=== PATIENT | male | born 1940 | race Caucasian/White ===

== ENCOUNTER → 2018-06-30 | Day surgery (SDC) | payer MEDICARE ==
[~2018-06-30] MED LIST: AMLODIPINE BESY10 MG PO; CEFTRIAXONE SOD 1 GM/NS 50 ML 50 ML IV ONE; GENTAMICIN SULFATE 200 MG in SODIUM CHLORIDE 0.9% 100 ML IV ONE; LIDOCAINE HCL 2% LOCAL INJ 5 ML SDV VIAL INJ ONE; LOSARTAN-HCTZ1 EACH PO; METOPROLOL SUCC25 MG PO; PROPOFOL IV EMULSION 10 MG/ML 20 ML VIAL ONE; SEVOFLURANE INHAL SOLN 250 ML PEN BTL ONE; SODIUM CHLORIDE 0.9% 1000ML 1,000 ML IV SCH
--- OUTSIDE RECORDS SUMMARY | 2018-06-30 06:58 | XMS REPORT | Clinical Summary ---
Author Author [facility] Organization [facility] Address Unknown Phone Unavailable Care Team Providers Care Glass Pulverizer Equipment Operator Name Role Phone Yoan Torres MD PCP Allergies No Known Allergies Medications No known medications Active Problems Problem Noted Date Acute pain of left knee 08/18/2016 Encounters Care Team Description Date Type Specialty Jairo Callahan MD Elevated PSA; Benign localized hyperplasia of prostate with urinary retention 06/25/2018 Hospital Radiology Encounter Jairo Callahan MD Elevated PSA (Primary Dx); Benign localized hyperplasia of prostate with urinary retention 06/24/2018 Transcribe Access Orders Jairo Callahan MD Elevated PSA 10/06/2017 Hospital Radiology Encounter Jairo Callahan MD Elevated PSA (Primary Dx) 10/01/2017 Transcribe Access Orders after 06/29/2017 Family History Relation Name Status Comments Father Mother Social History Date Tobacco Use Types Packs/Day Years Used Former Smoker Smokeless Tobacco: Current User Sex Assigned at Date Recorded Not on file Industry Job Start Date Occupation Not on file Not on file Not on file Travel End Travel History Travel Start No recent travel history available. Last Filed Vital Signs Not on file Plan of Treatment Health Maintenance Due Date Last Done Comments SHINGLES VACCINES (1 of 1991 2) PNEUMOCOCCAL 2006 POLYSACCHARIDE VACCINE AGE 65 AND OVER PNEUMOCOCCAL-13 2006 INFLUENZA VACCINE 12/23/2017 Procedures Comments Procedure Name Priority Date/Time Associated Diagnosis US PROSTATE Routine 06/25/2018 Elevated PSA 12:26 PM MACHINE OPERATOR Benign localized hyperplasia of prostate with urinary retention US PROSTATE Routine 10/06/2017 Elevated PSA 10:44 AM CDT after 06/29/2017 Results * US Prostate (06/25/2018 12:26 PM MACHINE OPERATOR) Only the most recent of 2 results within the time period is included. Narrative Performed At EXAMINATION:US PROSTATE [facility] CLINICAL HISTORY: R97.20 Elevated prostate specific antigen (PSA), N40.1 Benign prostatic hyperplasia with lower urinary tract symptoms, r97.2 n40.1 COMPARISON:None. Impression: 1.Prostate measures 5.6 x 3.6 x 5.8 cm for a calculated volume of 45 g. 2.There is enlargement and heterogeneity of the transition... Which is a prosthetic upper superior 3.There is a peripheral zone abnormality near the base and slightly to the right of midline. This is nonspecific on this examination. If the patient can tolerate MRI scan, MRI scan of the prostate would be suggested for better characterization and more sensitive evaluation of the deeper portion of the gland. [id number] Procedure Note Interface, Radiology Results Incoming - 06/25/2018 4:51 PM MACHINE OPERATOR EXAMINATION: US PROSTATE CLINICAL HISTORY: R97.20 Elevated prostate specific antigen (PSA), N40.1 Benign prostatic hyperplasia with lower urinary tract symptoms, r97.2 n40.1 COMPARISON: None. Impression: 1. Prostate measures 5.6 x 3.6 x 5.8 cm for a calculated volume of 45 g. 2. There is enlargement and heterogeneity of the transition... Which is a prosthetic upper superior 3. There is a peripheral zone abnormality near the base and slightly to the right of midline. This is nonspecific on this examination. If the patient can tolerate MRI scan, MRI scan of the prostate would be suggested for better characterization and more sensitive evaluation of the deeper portion of the gland. [id number] Performing Organization Address City/State/Zipcode Phone Number [facility] [address] [place] [address] after 06/29/2017 Insurance Payer Benefit Subscriber ID Type Phone Address Plan / Group [facility] MEDICARE AARP xxxxxxxxx O MEDICARE COMPLETE [place] (Home) [place] [address] Advance Directives Patient has advance care planning documents on file. For more information, pleas e contact: Anselmo Linares [address] [place] [place] [place] [address]
--- NOTE | 2018-06-30 08:10 | NUR ---
SPIRITUAL CARE - Pre-Surgery Assessment: Pt in bed. Pt's at bedside. Pt reported supportive attention from family and friends. Intervention: I provided pastoral presence, hospitality, and sympathetic listening. I acquainted pt with availability of housekeeper child care while hospitalized. Outcome: Pt expressed appreciation for visit. No need for follow up indicated at this time. [facility] Spiritual Care Department O: [phone] Pager: [phone] ([phone] + number calling from)
[2018-06-30 10:55] VITALS: BP 142/78
--- NOTE | 2018-06-30 11:12 | Operative Report ---
DATE OF PROCEDURE: June 30, 2018 PREOPERATIVE DIAGNOSES 1. Benign prostatic hypertrophy. 2. Rule out adenocarcinoma of the prostate. 3. Abnormal prostate-specific antigen, 41.2. POSTOPERATIVE DIAGNOSES 1. Benign prostatic hypertrophy. 2. Rule out adenocarcinoma of the prostate. 3. Abnormal prostate-specific antigen, 41.2. 4. Multiple bladder calculi, about 30. OPERATIONS 1. Transrectal ultrasound of the prostate. 2. Transrectal ultrasound-guided needle biopsies. 3. Cystourethroscopy. 4. Vesicolitholapaxy for all bladder calculi with complete removal of the stones. MODELING MANAGER: Dr. Simmons. ANESTHETIC: General. Mr. Boss is a 78-year-old male who presented with a chief complaint of increasing lower urinary tract obstruction. Rectal exam showed an enlarged, hard, fixed, irregular prostate all over. His PSA was 41.2. This patient has been seen in the office about a year ago and at this time his PSA was around 30 and he was advised about having prostate needle biopsy but he declined. DETAILS: This patient was placed on the table in the lithotomy position, and transrectal ultrasound of the prostate was performed and the prostate measured 5.38 x 3.66 x 4.64 with a total volume of 50.43 mL. The prostate was all over irregular and had multiple hypoechoic lesions all over. Both seminal vesicles were unremarkable. Transrectal ultrasound-guided needle biopsies were obtained from all over the prostate. This patient was then prepped and draped in a sterile manner after satisfactory anesthesia. A #23-Eritrean cystoscope was used and cystourethroscopy was performed and it was noted that the urethra was normal. The prostatic urethra was about 4 cm long, bilobar and occlusive. Cystoscopy was then performed using both right angle and the 4-0 oblique lens and there were about 30 bladder calculi almost filling the bladder. The bladder mucosa was normal. Both urethral orifices were seen and were within normal position, configuration and efflux. The [employer] evacuator was connected to the cystoscope and evacuation of all bladder calculi were done without any difficulty. The bladder was then irrigated and there were no stones. Cystoscopy was done and there were stones left. The bladder was drained. Cystoscope removed. Plans for this patient is to be placed on Levaquin 500 mg once a day for 1 week. Ultracet tablet 1 every 6 to 8 hours p.r.n. and was given 15. He is to return to the office in 1 week when at that time results of the biopsy will be back and will proceed with whatever indicated procedure. Job#: [id number] ZECHARIAH
== END | disposition home or self-care (01) ==
LOC: OR 06:56
PROVIDERS: ATTEND Specialist
DX: C61 Malignant neoplasm of prostate (principal); N21.0 Calculus in bladder; N40.1 Benign prostatic hyperplasia with lower urinary tract symptoms; N13.8 Other obstructive and reflux uropathy; I10 Essential (primary) hypertension
CPT/HCPCS: 52315; 55700; 76872; 88300; 88305; 93005; J0696; J1580; J2001; J2704; J7050

== ENCOUNTER 2018-08-11 07:46 | Observation (INO) | payer MEDICARE ==
[~2018-08-11] VITALS: Ht 170.2 cm; Wt 70.8 kg
[~2018-08-11 07:46] MED LIST changes: -CEFTRIAXONE SOD 1 GM/NS 50 ML 50 ML IV ONE; -GENTAMICIN SULFATE 200 MG in SODIUM CHLORIDE 0.9% 100 ML IV ONE; -LIDOCAINE HCL 2% LOCAL INJ 5 ML SDV VIAL INJ ONE; +LISINOPRIL-HCT1 EACH PO; -PROPOFOL IV EMULSION 10 MG/ML 20 ML VIAL ONE; -SEVOFLURANE INHAL SOLN 250 ML PEN BTL ONE; -SODIUM CHLORIDE 0.9% 1000ML 1,000 ML IV SCH
--- OUTSIDE RECORDS SUMMARY | 2018-08-11 07:48 | XMS REPORT | Clinical Summary ---
Author Author [facility] Organization [facility] Address Unknown Phone Unavailable Care Team Providers Care Exhibit Carpenter Name Role Phone Nadia Dumont MD PCP Allergies No Known Allergies Medications No known medications Active Problems Problem Noted Date Acute pain of left knee 08/18/2016 Encounters Care Team Description Date Type Specialty Jairo Callahan MD 08/05/2018 [facility] Procedural Cardiology Encounter Jairo Callahan MD Prostate cancer (HCC) 07/20/2018 Hospital Radiology Encounter Jairo Callahan MD 07/20/2018 Hospital Radiology Encounter Jairo Callahan MD Prostate cancer (HCC) 07/20/2018 Hospital Radiology Encounter Jairo Callahan MD Prostate cancer (HCC) (Primary Dx) 07/15/2018 Transcribe Access Orders Jairo Callahan MD Elevated PSA; Benign localized hyperplasia of prostate with urinary retention 06/25/2018 Hospital Radiology Encounter Jairo Callahan MD Elevated PSA (Primary Dx); Benign localized hyperplasia of prostate with urinary retention 06/24/2018 Transcribe Access Orders Jairo Callahan MD Elevated PSA 10/06/2017 Hospital Radiology Encounter Jairo Callahan MD Elevated PSA (Primary Dx) 10/01/2017 Transcribe Access Orders after 08/10/2017 Family History Relation Name Status Comments Father [...] Due Date Last Done Comments SHINGLES VACCINES (#1) 1991 65+ PNEUMOCOCCAL VACCINE 2006 (1 of 2 - PCV13) PNEUMOCOCCAL 2006 POLYSACCHARIDE VACCINE AGE 65 AND OVER INFLUENZA VACCINE 12/23/2017 Procedures Comments Procedure Name Priority Date/Time Associated Diagnosis ECG 12-LEAD Routine 08/05/2018 8:06 AM CDT NM BONE SCAN WHOLE BODY Routine 07/20/2018 Prostate cancer (HCC) 12:48 PM FARM MORTGAGE AGENT MRI PELVIS W WO CONTRAST Routine 07/20/2018 Prostate cancer (HCC) 8:56 AM FARM MORTGAGE AGENT ESTIMATED GFR Routine 07/20/2018 7:22 AM FARM MORTGAGE AGENT POC CREATININE Routine 07/20/2018 7:22 AM FARM MORTGAGE AGENT US PROSTATE Routine 06/25/2018 Elevated PSA 12:26 PM FARM MORTGAGE AGENT Benign localized hyperplasia of prostate with urinary retention US PROSTATE Routine 10/06/2017 Elevated PSA 10:44 AM CDT after 08/10/2017 Results * ECG 12 lead (08/05/2018 8:06 AM CDT) Ventricular rate 47 [facility] Atrial rate 47 [facility] AK interval 182 [facility] QRSD interval 90 [facility] QT interval 460 [facility] QTC interval 407 [facility] P axis 1 8 [facility] QRS axis 1 22 [facility] T wave axis -8 [facility] EKG impression Marked sinus [facility] bradycardia-Septal infarct , age undetermined-Abnormal ECG-- Narrative Performed At Performing Organization Address City/State/Zipcode Phone Number [facility] M[facility] [address] [place] [address] * NM Bone Scan Whole Body (07/20/2018 12:48 PM FARM MORTGAGE AGENT) Narrative Performed At PROCEDURE:NM BONE SCAN WHOLE BODY [facility] INDICATION:Prostate cancer. COMPARISON:MRI of the pelvis performed on same day. TECHNIQUE: Approximately three hours after the IV administration of 25 mCi of Tc-99m labeled MDP, routine whole body planar bone scanning was performed in the anterior and posterior projections. 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 IMPRESSION: 1.No scintigraphic evidence of osseous metastatic disease. [facility]-[id number] Procedure Note Interface, Radiology Results Incoming - 07/20/2018 12:58 PM FARM MORTGAGE AGENT PROCEDURE: NM BONE SCAN WHOLE BODY INDICATION: Prostate cancer. COMPARISON: MRI of the pelvis performed on same day. TECHNIQUE: Approximately three hours after the IV administration of 25 mCi of Tc-99m labeled MDP, routine whole body planar bone scanning was performed in the anterior and posterior projections. FINDINGS: No suspicious uptake is seen to suggest the presence of osseous metastatic disease. 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 IMPRESSION: 1. No scintigraphic evidence of osseous metastatic disease. [facility]-[id number] Performing Organization Address City/State/Zipcode Phone Number [facility] [address] [place] [address] * MRI Pelvis W Wo Contrast (07/20/2018 8:56 AM FARM MORTGAGE AGENT) Narrative [facility]formed At [facility] EXAMINATION:MRI PELVIS W WO CONTRAST CLINICAL HISTORY:C61 Malignant neoplasm of prostate, PROSTATE CA COMPARISON:None. TECHNIQUE: Using a pelvic phased array coil, multiplanar, multisequence MRI of the pelvis was performed with a prostate-specific protocol with and without contrast. Diffusion weighted images and dynamic contrast enhanced images were performed. FINDINGS: 1. The image quality is satisfactory. 2. The prostate gland measures 5.0 x 3.4 x 4.5 cm. Estimated prostatic volume is 41 cc calculated by ellipsoid formula. 3. Central gland: There is BPH involving the central gland without a significant lesion identified. 4. Peripheral zone: There is diffuse hemorrhage consistent with recent biopsy. There is relative sparing of hemorrhage throughout the left peripheral zone associated with abnormal T2 signal, diffusion restriction, and abnormal perfusion consistent with malignancy. This essentially involves the entire left hemigland measuring approximately 2.9 x 1.6 cm on transaxial dimensions and spanning 3.6 cm in length. 5. Seminal vesicles: There is some hemorrhagic signal without definite tumor. 6. Extracapsular extension: The large left peripheral zone lesion demonstrates broad capsular contact with some bulging and irregularity at the base and midgland (example, series 10 images 11 and 14). 7: Bladder: Normal. 8. Lymph nodes: No suspicious lymph nodes. 9. Bones: No focal marrow replacing abnormality. IMPRESSION: Large volume disease throughout the left peripheral zone with suspected extra-prostatic extension (PI-RADS 5). No regional lymphadenopathy by size criteria. PI-RADS score: The presence of a significant prostate cancer is: PI-RADS 1: Highly unlikely PI-RADS 2: Unlikely PI-RADS 3: Equivocal PI-RADS 4: Likely PI-RADS 5: Highly likely [id number] Procedure Note Hm Interface, Radiology Results Incoming - 07/20/2018 5:33 PM FARM MORTGAGE AGENT EXAMINATION: MRI PELVIS W WO CONTRAST CLINICAL HISTORY: C61 Malignant neoplasm of prostate, PROSTATE CA COMPARISON: None. TECHNIQUE: Using a pelvic phased array coil, multiplanar, multisequence MRI of the pelvis was performed with a prostate-specific protocol with and without contrast. Diffusion weighted images and dynamic contrast enhanced images were performed. FINDINGS: 1. The image quality is satisfactory. 2. The prostate gland measures 5.0 x 3.4 x 4.5 cm. Estimated prostatic volume is 41 cc calculated by ellipsoid formula. 3. Central gland: There is BPH involving the central gland without a significant lesion identified. 4. Peripheral zone: There is diffuse hemorrhage consistent with recent biopsy. There is relative sparing of hemorrhage throughout the left peripheral zone associated with abnormal T2 signal, diffusion restriction, and abnormal perfusion consistent with malignancy. This essentially involves the entire left hemigland measuring approximately 2.9 x 1.6 cm on transaxial dimensions and spanning 3.6 cm in length. 5. Seminal vesicles: There is some hemorrhagic signal without definite tumor. 6. Extracapsular extension: The large left peripheral zone lesion demonstrates broad capsular contact with some bulging and irregularity at the base and midgland (example, series 10 images 11 and 14). 7: Bladder: Normal. 8. Lymph nodes: No suspicious lymph nodes. 9. Bones: No focal marrow replacing abnormality. IMPRESSION: Large volume disease throughout the left peripheral zone with suspected extra- prostatic extension (PI-RADS 5). No regional lymphadenopathy by size criteria. PI-RADS score: The presence of a significant prostate cancer is: PI-RADS 1: Highly unlikely PI-RADS 2: Unlikely PI-RADS 3: Equivocal PI-RADS 4: Likely PI-RADS 5: Highly likely [facility]-[id number] Performing Organization Address City/[facility]/Zipcode Phone Number [facility] [address] [place] [address] * Estimated GFR (07/20/2018 7:22 AM FARM MORTGAGE AGENT) Estimated GFR >=90 mL/min/1.73 m2 [facility] Comment: [facility] CatergoryUnitsInte rpretation G1 >=90 Normal or high G2 60-89Mildly decreased R8e83-58 Mildly to moderately decreased T9e81-84 Moderately to severely decreased G4 15-29Severely decreased G5 <15Kidney failure The eGFR was calculated using the Chronic Kidney Disease Epidemiology Collaboration (CKD-EPI) equation. Interpretation is based on recommendations of the National Kidney Foundation-Kidney Disease Outcomes Quality Initiative (NKF-KDOQI) published in 2014. Specimen Blood Performing Organization Address [place]/[facility] [place] [address] PATHOLOGY AND GENOMIC MEDICINE [address] * POC creatinine (07/20/2018 7:22 AM FARM MORTGAGE AGENT) POC creatinine 0.7 0.7 - 1.2 mg/dl [facility] Specimen Blood Performing Organization Address City/[facility] Cent[facility]ode Phone Number [facility] [place] [address] PATHOLOGY AND GENOMIC MEDICINE [address] * US Prostate (06/25/2018 12:26 PM FARM MORTGAGE AGENT) Only the most recent of 2 results [...] of the deeper portion of the gland. [id number] Procedure Note Interface, Radiology Results Incoming - 06/25/2018 4:51 PM FARM MORTGAGE AGENT EXAMINATION: US PROSTATE CLINICAL HISTORY: R97.20 Elevated [...] of the deeper portion of the gland. [id number] Performing Organization Address City/State/Zipcode Phone Number [facility] [address] [place] [address] after 08/10/2017 Insurance Payer Benefit Subscriber ID Type Phone Address Plan / Group [facility] MEDICARE AARP xxxxxxxxx [facility] MEDICARE COMPLETE [facility] ([place]) [place] [address] Advance Directives Patient has advance care planning documents on file. For more information, lionel carvajal contact: Anselmo Linares [address] [place] [address]
[2018-08-11] MEDS ORDERED: HYOSCYAMINE 0.125 MG TAB ONE (08:42)
[2018-08-11] MEDS ORDERED: LEVOFLOXACIN 500MG/D5W 100ML 100 ML IV ONE (08:42)
[2018-08-11] MEDS ORDERED: MEPERIDINE HCL INJ 25 MG/ML VIAL ONE (12:03)
[2018-08-11] MEDS ORDERED: HYDRALAZINE HCL 20 MG/ML VIAL ONE (12:08)
--- OUTSIDE RECORDS SUMMARY | 2018-08-11 12:24 | XMS REPORT | Clinical Summary ---
Author Author [facility] Organization [facility] Address Unknown Phone Unavailable Care Team Providers Care Metal Fabricating Supervisor Name Role Phone Nadia Dumont MD PCP Allergies No Known Allergies Medications No known medications Active Problems Problem Noted Date Acute pain of left knee 08/18/2016 Encounters Care Team Description Date Type Specialty Jairo Callahan MD 08/05/2018 [facility] Procedural Cardiology Encounter Jairo Callahan MD Prostate [...] Routine 07/20/2018 Prostate cancer (HCC) 12:48 PM ELECTRICAL INTERN MRI PELVIS W WO CONTRAST Routine 07/20/2018 Prostate cancer (HCC) 8:56 AM ELECTRICAL INTERN ESTIMATED GFR Routine 07/20/2018 7:22 AM ELECTRICAL INTERN POC CREATININE Routine 07/20/2018 7:22 AM ELECTRICAL INTERN US PROSTATE Routine 06/25/2018 Elevated PSA 12:26 PM ELECTRICAL INTERN Benign localized hyperplasia of prostate with urinary retention US PROSTATE Routine 10/06/2017 Elevated PSA 10:44 AM CDT after 08/10/2017 Results * ECG 12 lead (08/05/2018 8:06 AM CDT) Ventricular rate 47 [facility] Atrial rate 47 [facility] IN interval 182 [facility] QRSD interval 90 [facility] QT interval 460 [facility] QTC interval 407 [facility] P axis 1 8 [facility] QRS axis 1 22 [facility] T wave axis -8 [facility] EKG impression Marked sinus [facility] bradycardia-Septal infarct , age undetermined-Abnormal ECG-- Narrative Performed At Performing Organization Address City/State/Zipcode Phone Number [facility] M[facility] [address] [place] [address] * NM Bone Scan Whole Body (07/20/2018 12:48 PM ELECTRICAL INTERN) Narrative Performed At PROCEDURE:NM BONE SCAN WHOLE [...] 1.No scintigraphic evidence of osseous metastatic disease. [facility]-[id number] Procedure Note Interface, Radiology Results Incoming - 07/20/2018 12:58 PM ELECTRICAL INTERN PROCEDURE: NM BONE SCAN WHOLE BODY INDICATION: [...] No scintigraphic evidence of osseous metastatic disease. [id number] Performing Organization Address City/State/Zipcode Phone Number [facility] [address] [place] [address] * MRI Pelvis W Wo Contrast (07/20/2018 8:56 AM ELECTRICAL INTERN) Narrative [facility]formed At [facility] EXAM[facility]ATION:MRI PELVIS W WO CONTRAST CLINICAL HISTORY:C61 [...] PI-RADS 4: Likely PI-RADS 5: Highly likely [id number] Procedure Note Hm Interface, Radiology Results Incoming - 07/20/2018 5:33 PM ELECTRICAL INTERN EXAMINATION: MRI PELVIS W WO CONTRAST CLINICAL [...] PI-RADS 4: Likely PI-RADS 5: Highly likely [facility]-[id number] Performing Organization Address City/[facility]/Zipcode Phone Number [facility] [address] [place] [address] * Estimated GFR (07/20/2018 7:22 AM ELECTRICAL INTERN) Estimated GFR >=90 mL/min/1.[address] [facility] Comment: [facility] CatergoryUnitsInte rpretation G1 >=90 Normal or high G2 60-89Mildly decreased G2n62-20 Mildly to moderately decreased O5v25-74 Moderately to severely decreased G4 15-29Severely decreased G5 <15Kidney failure The eGFR was calculated using the Chronic Kidney Disease Epidemiology Collaboration (CKD-EPI) equation. Interpretation is based on recommendations of the National Kidney Foundation-Kidney Disease Outcomes Quality Initiative (NKF-KDOQI) published in 2014. Specimen Blood Performing Organization Address [facility] [place] [address] PATHOLOGY AND GENOMIC MEDICINE [address] * POC creatinine (07/20/2018 7:22 AM ELECTRICAL INTERN) POC creatinine 0.7 0.7 - 1.2 mg/dl [facility] Specimen Blood Performing Organization Address City/[facility] Cent[facility]ode Phone Number [facility] [place] [address] PATHOLOGY AND GENOMIC MEDICINE [address] * US Prostate (06/25/2018 12:26 PM ELECTRICAL INTERN) Only the most recent of 2 results [...] of the deeper portion of the gland. [id number] Procedure Note Interface, Radiology Results Incoming - 06/25/2018 4:51 PM ELECTRICAL INTERN EXAMINATION: US PROSTATE CLINICAL HISTORY: R97.20 Elevated [...] of the deeper portion of the gland. [id number] Performing Organization Address City/State/Zipcode Phone Number [facility] [address] [place] [address] after 08/10/2017 Insurance Payer Benefit Subscriber ID Type Phone Address Plan / Group [facility] MEDICARE AARP xxxxxxxxx [facility] MEDICARE COMPLETE [facility] ([place]) [place] [address] Advance Directives Patient has advance care planning documents on file. For more information, lionel carvajal contact: Anselmo Linares [address] [place] [address]
--- NOTE | 2018-08-11 13:23 | Operative Report ---
DATE OF PROCEDURE: 08/11/2018 SURGEON: Jairo Callahan MD PREOPERATIVE DIAGNOSES: 1. Adenocarcinoma of the prostate. 2. Prostatic obstruction. POSTOPERATIVE DIAGNOSES: 1. Adenocarcinoma of the prostate. 2. Prostatic obstruction. OPERATIONS: 1. Cystourethroscopy. 2. Transurethral resection of the prostate, laser XPS. ANESTHESIA: General. DESCRIPTION OF PROCEDURE: Mr. Boss is a 78-year-old male, who presented with a chief complaint of lower urinary tract obstruction. He was also noted to have an elevated PSA. Transrectal ultrasound-guided needle biopsies were obtained and showed carcinoma of the prostate. This patient was placed on the table in the lithotomy position and was prepped and draped in a sterile manner after satisfactory anesthesia. #23 cystoresectoscope was used and cystourethroscopy was performed and it was noted that the urethra was normal except for a tight urethral meatus that had to be dilated with the [place] sound up to #26-Mauritanian. The prostatic urethra was about 4 cm long, bilobar and occlusive. Cystoscopy was then performed using both right angle and the foroblique lens, and the bladder mucosa was normal. Both ureteral orifices were seen and were within normal position, configuration, efflux. The XPS laser scope generator was then started starting at 120 tubbs vaporization level and 40 tubbs coagulation level. Vaporization of the prostate was then started starting at 12 o'clock position from the bladder neck to just proximal to the verumontanum. Vaporization was then started from 1 o'clock to 5 o'clock starting again at the bladder neck just proximal to the verumontanum and down to the capsular fibers. Hemostasis was obtained and was very adequate. Vaporization was then started again starting from the 11 o'clock to 7 o'clock starting again at the bladder neck to just proximal to the verumontanum and down to the capsular fibers. Hemostasis was very adequate again. At the termination of the procedure, the bladder mucosa, both ureteral orifices and external sphincter were intact without laser energy damage. The cystoresectoscope was removed. The laser scope generator was shut down and a #22-Mauritanian three-way Maldonado catheter was placed on mild traction. Estimated blood loss was less than 5 mL. Jairo Callahan MD MA/SHRADDHA /[id number]
[2018-08-11] MEDS ORDERED: HYDROMORPHONE 2MG/ML 2 MG/ML ML IV PRN (13:45)
[2018-08-11] MEDS ORDERED: HYDROMORPHONE 1MG/1ML INJ IV PRN (13:45)
[2018-08-11] MEDS ORDERED: ONDANSETRON HCL INJ 2MG/ML 2ML 2 MG/ML VIAL IV PRN (13:45)
[2018-08-11] MEDS ORDERED: LEVOFLOXACIN 500MG/D5W 100ML 100 ML IV SCH (13:45)
[2018-08-11] MEDS: SODIUM CHLORIDE 0.9% 1000ML 1,000 ML IV SCH ×2 (14:12→23:38)
[2018-08-11 14:20] VITALS: BP 161/70
[2018-08-11 16:43] VITALS: BP 137/63
[2018-08-11] MEDS ORDERED: ONDANSETRON HCL INJ 2MG/ML 2ML 2 MG/ML VIAL ONE (17:55)
[2018-08-11] MEDS ORDERED: DEXAMETHASONE SOD PHOS INJ 4 MG/ML VIAL ONE (17:55)
[2018-08-11] MEDS ORDERED: DESFLURANE 240 ML BTL INH ONE (17:55)
[2018-08-11] MEDS ORDERED: PROPOFOL IV EMULSION 10 MG/ML 20 ML VIAL ONE (17:55)
[2018-08-11] MEDS ORDERED: MIDAZOLAM HCL 2 MG/2 ML VIAL ONE (18:17)
[2018-08-11] MEDS ORDERED: FENTANYL CITRATE/PF 100MCG/2 ML INJ ONE (18:17)
[2018-08-11 20:00] VITALS: BP 135/69
[2018-08-11 22:08] VITALS: BP 135/69
[2018-08-12] VITALS: BP 123/64
[2018-08-12 04:00] VITALS: BP 178/88
[2018-08-12] MEDS: SODIUM CHLORIDE 0.9% 1000ML 1,000 ML IV SCH (05:36)
--- NOTE | 2018-08-12 05:46 | NUR ---
The patient's last blood pressure was 178/88 with a heart rate of 68. I called the number listed for doctor flakoed and was unable to reach the doctor [phone]. Patient is resting comfortably, denies any chest pain, dizziness, headache. I instructed the patient to call me if he starts experiencing any of this symptoms or if anything changes. He stated he felt fine, but that he usually did take lisinopril in the morning.
[2018-08-12 06:02] LABS: BASOPHILS % 0.2 % (0.0-1.0); EOSINOPHILS % 0.1 % (0.0-6.0); HEMATOCRIT 43.4 % (38.2-49.6); LYMPHOCYTES # (AUTO) 1.3 (1.0-3.2); LYMPHOCYTES % 14.2 % (18.0-39.1); MEAN CORPUSCULAR HEMOGLOBIN 32.6 pg (28-32); MEAN CORPUSCULAR HGB CONC 34.6 g/dL (31-35); MEAN CORPUSCULAR VOLUME 94.3 fL (81-99); MONOCYTES # (AUTO) 0.9 (0.2-0.8); MONOCYTES % 9.6 % (4.4-11.3); NEUTROPHILS # (AUTO) 7.1 (2.1-6.9); NEUTROPHILS % 75.5 % (38.7-80.0); PLATELET COUNT 187 x10e3/uL (140-360); RED CELL DISTRIBUTION WIDTH 13.2 % (11.7-14.4)
[2018-08-12 06:36] LABS: ANION GAP 10.7 mmol/L (8-16); BLOOD UREA NITROGEN 7 mg/dL (7-26); BUN/CREATININE RATIO 9 (6-25); CALCIUM 8.7 mg/dL (8.4-10.2); CARBON DIOXIDE 27 mmol/L (22-29); CHLORIDE 100 mmol/L (98-107); EST GLOMERULAR FILTRATION RATE > 60 ML/MIN (60-); GLUCOSE 137 mg/dL (74-118); POTASSIUM 3.7 mmol/L (3.5-5.1); SODIUM 134 mmol/L (136-145)
--- NOTE | 2018-08-12 07:00 | NUR ---
BDDSIDE ROUNDING DONE. NO DISTRESS NOTED. CBI IN PROGRESS. FAMILY AT BEDSIDE.
[2018-08-12 07:50] VITALS: BP 196/91
--- NOTE | 2018-08-12 09:15 | NUR ---
DR. Samuel PLAZA HERE TO SEE PT. ORDERS TO REMOVE MAGAÑA.
--- NOTE | 2018-08-12 09:38 | NUR ---
MAGAÑA REMOVED,PT TOLERATED WELL, NO C/O PAIN NO DISTRESS NOTED, CALL LIGHT IN REACH. FAMILY MEMBERS AT BEDSIDE.
--- NOTE | 2018-08-12 11:24 | NUR ---
pt discharged home , with specific orders no lifting, pushing, pulling, driving, and to follow up with Dr. Gill in 4 weeks, family member at bedside, both verbalized understanding, iv site removed, no swelling no redness to site.
--- NOTE | 2018-08-12 12:56 | Discharge Summary ---
PREOPERATIVE DIAGNOSIS: Adenocarcinoma of the prostate. OPERATIONS: 1. Cystourethroscopy. 2. TURP, laser on August 11, 2018. HISTORY: Mr. Santiago is a 78-year-old male, who presented with a chief complaint of lower urinary tract obstructive symptoms and elevated PSA. Transrectal prostatic needle biopsies performed showed adenocarcinoma of the prostate. Bone scan and MRI of the pelvis showed no evidence of metastatic disease. This patient was taken to the operating room on August 11, 2018, and underwent above procedure. His postoperative period was unremarkable. His Maldonado catheter was discontinued this morning. He is to be discharged following his voiding. DISCHARGE MEDICATIONS: 1. Levaquin 500 mg once a day for seven days. 2. Ultracet tablet one every 6 to 8 hours and was given 30. FOLLOWUP: He is to return to the office in about 3 to 4 weeks and at that time, we will start his radiation therapy and Lupron therapy. Jairo Callahan MD MA/SHRADDHA /[id number]
== END 2018-08-12 11:45 | disposition home or self-care (01) ==
LOC: OR 07:46 → PACU V 12:19 → MED/SURG 13:32
PROVIDERS: ADMIT Specialist; ATTEND Specialist
DX: N40.1 Benign prostatic hyperplasia with lower urinary tract symptoms (principal); N13.8 Other obstructive and reflux uropathy; C61 Malignant neoplasm of prostate; I10 Essential (primary) hypertension
CPT/HCPCS: 36415; 52648; 80048; 85025; G0378 ×2; J0360; J1100; J1956; J2175; J2250; J2405; J2704; J7030 ×2